=== PATIENT | male | born 1975 | race African-American/Black ===

== ENCOUNTER 2017-05-07 14:23 | Emergency (ER) | payer MEDICAID ==
[~2017-05-07] VITALS: Ht 175.3 cm; Wt 77.1 kg
[2017-05-07 14:46] VITALS: BP 148/107
[2017-05-07] MEDS: KETOROLAC TROMETH 60MG/2ML VIAL IM ONE (17:26)
== END 2017-05-07 18:19 | disposition home or self-care (01) ==
LOC: ER 14:23
DX: M54.42 Lumbago with sciatica, left side (principal); G89.29 Other chronic pain; F17.210 Nicotine dependence, cigarettes, uncomplicated
CPT/HCPCS: 96372; 99283; J1885